=== PATIENT | male | born 1955 | race Caucasian/White ===

== ENCOUNTER 2021-03-21 16:48 | Inpatient (IN) | payer BC ==
[2021-03-21 18:18] LABS: HCT 42.9 % (39.0-53.0); HGB 14.6 gm/dL (13.0-17.5); MCH 30.2 pg (25.0-35.0); MCHC 34.1 g/dL (31.0-37.0); MCV 88.6 fL (80.0-100.0); Platelet Count 223 k/uL (150-450); RBC 4.84 m/uL (4.30-5.90); RDW 14.6 % (11.5-15.5); WBC 9.4 k/uL (3.8-10.6)
[2021-03-21 18:19] LABS: Basophils % (A) 1 %; Eosinophils # (A) 0.2 k/uL (0-0.7); Eosinophils % (A) 3 %; Lymphocytes # (A) 1.8 k/uL (1.0-4.8); Lymphocytes % (A) 19 %; Mean Platelet Volume 6.8; Monocytes # (A) 0.3 k/uL (0-1.0); Monocytes % (A) 4 %; Neutrophils # (A) 6.8 k/uL (1.3-7.7); Neutrophils % (A) 73 %
--- NOTE | 2021-03-21 18:28 | XR ---
EXAMINATION TYPE: XR chest 2V DATE OF EXAM: 03/21/2021 COMPARISON: Today HISTORY: Chest pain TECHNIQUE: FINDINGS: Heart and mediastinum are normal. Lungs are clear. Diaphragm is normal. Bony thorax is inta ct. There are chest leads. Pulmonary vascularity is normal. IMPRESSION: Normal chest. No adverse change.
[2021-03-21 18:33] LABS: ALT 17 U/L (4-49); AST 48 U/L (17-59); African American GFR (CKD) >90 (>60 ml/min/1.73 sqM); Albumin 3.3 g/dL (3.5-5.0); Alkaline Phosphatase 53 U/L (38-126); Anion Gap 5 mmol/L; Blood Urea Nitrogen 15 mg/dL (9-20); Calcium 7.7 mg/dL (8.4-10.2); Carbon Dioxide 22 mmol/L (22-30); Chloride 107 mmol/L (98-107); Glucose 107 mg/dL (74-99); Magnesium 1.9 mg/dL (1.6-2.3); Non-African American GFR(CKD) >90 (>60 ml/min/1.73 sqM); Partial Thromboplastin Time 37.8 sec (22.0-30.0); Potassium 4.7 mmol/L (3.5-5.1); Prothrombin Time 10.8 sec (9.0-12.0); Sodium 134 mmol/L (137-145); Total Bilirubin 0.2 mg/dL (0.2-1.3); Total Protein 5.9 g/dL (6.3-8.2)
[2021-03-21] MEDS ORDERED: SODIUM CHLORIDE 0.9% 1,000 ML IV ONE (18:38)
--- NOTE | 2021-03-21 18:49 | ED ---
Chest Pain HPI - General Chief Complaint: Chest Pain Stated Complaint: chest pain Time Seen by Provider: 03/21/21 16:55 Source: patient, EMS Mode of arrival: EMS Limitations: no limitations - History of Present Illness Initial Comments: Patient is a 65-year-old male with no reported past medical history who presents to the emergency department with chest pain. He is a transfer from [facility]. He states that around 7:30 this morning he began having some chest pain which began in the central portion of his chest and radiated out to his left arm. He thought that he was having some indigestion. Pain began while he was at work talking on the phone. He states he went into [facility] for further evaluation. He did have a 12-lead EKG which demonstrated some ST elevation in 1 of his inferior leads. Laboratory studies were conducted which demonstrated a negative troponin. Chest x-ray was performed. He was placed on a heparin drip. He was also given a nitro patch. 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 He did have a second troponin that was drawn at her facility however was transferred prior to the results. In route to our facility he became hypotensive. EMS did shock the patient's heparin drip and removed the patient's nitro patch. They did give him a 1500 mL bolus with some improvement in his blood pressure. The patient arrives to our facility and continues to state that he has 4 out of 10 pain. He denies fevers, chills or cough. No nausea, vomiting or diaphoresis. He denies previous history of cardiac disease. Reports that his only surgery was lymph node removal in his right arm with a diagnosis of cat scratch fever. Denies that he takes any medications daily. Patient does not smoke. No history of hypertension or high cholesterol. He denies a ripping or tearing sensation to his back. No shortness of breath. No other alleviating, precipitating or modifying factors - Related Data Previous Rx's Medication Instructions Recorded Ticagrelor [Brilinta] 90 mg PO BID 30 Days #60 tab 03/22/21 Aspirin 81 mg PO DAILY 03/23/21 Atorvastatin [Lipitor] 80 mg PO DAILY 30 Days #30 tab 03/23/21 Metoprolol Succinate (ER) [Toprol 12.5 mg PO DAILY 30 Days #30 tab 03/23/21 XL] Allergies Allergy/AdvReac Type Severity Reaction Status Date / Time No Known Allergies Allergy Verified 03/21/21 17:36 Review of Systems ROS Statement: Those systems with pertinent positive or pertinent negative responses have been documented in the HPI. ROS Other: All systems not noted in ROS Statement are negative. EKG Findings - EKG Comments: EKG Findings:: EKG done at our facility demonstrates a sinus bradycardia with a rate of 52. Urine of O2 12. QRS 78. QTC of 416. J-point elevation in 2, 3 and aVF. Inverted T-wave in aVL. No acute ST segment elevations. Repeat EKG at 191 demonstrates a sinus bradycardia with a ventricular rate of 50. ID interval 216. QRS 82. QTC of 392. No acute ST segment elevations or depressions Past Medical History Past Medical History: No Reported History History of Any Multi-Drug Resistant Organisms: None Reported Additional Past Surgical History / Comment(s): right axillary lymph node removal. Past Psychological History: No Psychological Hx Reported Smoking Status: Never smoker Past Alcohol Use History: Occasional Past Drug Use History: None Reported General Exam Limitations: no limitations General appearance: alert, in no apparent distress Head exam: Present: atraumatic, normocephalic, normal inspection Eye exam: Present: normal appearance, PERRL, EOMI. Absent: scleral icterus, conjunctival injection, periorbital swelling ENT exam: Present: normal exam, mucous membranes moist Neck exam: Present: normal inspection. Absent: tenderness, meningismus, lymphadenopathy Respiratory exam: Present: normal lung sounds bilaterally. Absent: respiratory distress, wheezes, rales, rhonchi, stridor Cardiovascular Exam: Present: normal rhythm, bradycardia, normal heart sounds. Absent: systolic murmur, diastolic murmur, rubs, gallop, clicks GI/Abdominal exam: Present: soft, normal bowel sounds. Absent: distended, tenderness, guarding, rebound, rigid Extremities exam: Present: normal inspection, full ROM, normal capillary refill. Absent: tenderness, pedal edema, joint swelling, calf tenderness Back exam: Present: normal inspection Neurological exam: Present: alert, oriented X3, CN II-XII intact Psychiatric exam: Present: normal affect, normal mood Skin exam: Present: warm, dry, intact, normal color. Absent: rash Course Vital Signs 03/21/21 03/21/2103/21/21 16:51 18:04 18:35 Temperature 98.0 F Pulse Rate 55 L 58 L 50 L Respiratory 12 16 16 Rate Blood Pressure 93/65 88/56 81/54 O2 Sat by Pulse 98 98 98 Oximetry 03/21/21 03/21/21 03/21/21 19:01 19:26 19:36 Temperature Pulse Rate 49 L 70 Respiratory 16 16 Rate Blood Pressure 100/62 95/68 107/81 O2 Sat by Pulse 98 97 Oximetry 03/21/21 19:51 Temperature Pulse Rate 50 L Respiratory 16 Rate Blood Pressure 111/67 O2 Sat by Pulse 98 Oximetry - Reevaluation(s) Reevaluation #1: 03/21/21 18:[address] Meyer - ruperto give fluid bolus, awaiting troponin and will call him back Reevaluation #2: Spoke with Dr. Meyer - will cath patient. Recommends peripheral levo, heparin, and cath activation 03/21/21 19:18 Chest Pain MDM - MDM Upon arrival the patient is placed into trauma 2. A thorough history and physical exam was performed. Patient does have some improvement in his blood pressure and has a systolic of 100 at this time. Repeat EKG was performed which demonstrates no acute ST segment elevation. I did repeat patient's laboratory studies. I did call over to [facility] and obtain the patient's second troponin level which was elevated at 0.43. I did call and speak with Dr. Cleaning in regards to the patient's low blood pressure readings. He instructs to give a 500 mL bolus and repeat a troponin level. He would like to be called back with the results. Patient is given a bolus and does have some transient improvement in his blood pressure however once again does fall. Repeat troponin comes back and is now at 1.6. I did call and speak with Dr. Meyer who states that the patient should be placed on peripheral levo and he will take him for cath. energy systems laboratory director was activated at this time. Risks and benefits were discussed with the patient and he does agree catheterization. Patient transported upstairs in stable condition. I did call and speak with Miah from [facility] who will admit the patient Critical Care Time Critical Care Time: Yes Critical Care Time: 35 minutes for multiple consultations with cardiology due to concern of acute cardiac ischemia, evaluation of multiple EKGs, continuation of heparin gtt and initiation of peripheral levo Disposition Clinical Impression: Chest pain, NSTEMI (non-ST elevated myocardial infarction) Disposition: ADMITTED IP TO THIS HOSP Condition: Serious Is patient prescribed a controlled substance at d/c from ED?: No Decision to Admit Reason: Admit from EC Decision Date: 03/21/21 Decision Time: 19:20
[2021-03-21] MEDS: SODIUM CHLORIDE 0.9% 1,000 ML IV SCH (18:59)
[2021-03-21] MEDS ORDERED: HEPARIN SODIUM 1,000 UN/ML (10ML VL) IV PRN (19:13)
[2021-03-21] MEDS ORDERED: HEPARIN SOD,PORK IN 0.45% NACL 25,000 UNIT in 0.45% NACL 1 250ML.BAG IV SCH (19:15)
[2021-03-21] MEDS ORDERED: NALOXONE 0.4 MG/ML 1 ML VIAL IV PRN (19:20)
[2021-03-21] MEDS: NOREPINEPHRINE 4 MG in SODIUM CHLORIDE 0.9% 250 ML IV SCH (19:29)
[2021-03-21] MEDS ORDERED: LIDOCAINE 1% INJ 10MG/ML (20 ML MDV) ONE (19:46)
[2021-03-21] MEDS ORDERED: VERAPAMIL 2.5 MG/ML 2 ML AMP ONE (20:15)
[2021-03-21] MEDS ORDERED: MIDAZOLAM 2 MG/2 ML VIAL IV ONE (20:19)
[2021-03-21] MEDS ORDERED: LIDOCAINE 1% INJ 10MG/ML (20 ML MDV) SQ ONE (20:28)
[2021-03-21] MEDS ORDERED: VERAPAMIL SYRINGE (5 MG/10 ML) INTRAARTER ONE (20:28)
[2021-03-21] MEDS ORDERED: HEPARIN SODIUM 1,000 UN/ML (10ML VL) ONE (20:34)
[2021-03-21] MEDS ORDERED: HEPARIN SODIUM 1,000 UN/ML (10ML VL) IV ONE (20:35)
[2021-03-21] MEDS ORDERED: TIROFIBAN BOLUS 12.5MG/250 ML BAG IV ONE (20:49)
[2021-03-21] MEDS ORDERED: TIROFIBAN 12.5MG-250ML NS 250 ML IV ONE (20:53)
[2021-03-21] MEDS ORDERED: IV FLUID CONTINUATION 950 ML IV ONE (20:53)
[2021-03-21] MEDS ORDERED: IOPAMIDOL-370 100ML BTL INJ ONE ×3 (21:38→21:50)
[2021-03-21] MEDS ORDERED: NITROGLYCERIN 1000MCG/10ML SYRINGE INTRACORON ONE (21:47)
[2021-03-21] MEDS ORDERED: TICAGRELOR 90 MG TAB PO ONE (21:49)
[2021-03-21] MEDS ORDERED: TICAGRELOR 90 MG TAB ONE (21:53)
[2021-03-21 22:27] LABS: Glucose,Whole Blood 109 mg/dL (75-99)
[2021-03-21] MEDS ORDERED: ATORVASTATIN 80 MG TAB PO STA (22:55)
[2021-03-21] MEDS ORDERED: TICAGRELOR 90 MG TAB PO STA (22:56)
--- NOTE | 2021-03-21 23:04 | CC ---
CARDIAC CATHETERIZATION REPORT DATE OF SERVICE: 03/21/2021. PROCEDURE: 1. Left heart catheterization and coronary angiography. 2. Percutaneous transluminal coronary angioplasty and stenting of PLV branch of RCA, PDA branch of RCA, mid and distal RCA with a total of 5 drug-eluting stents. PERFORMED BY: Dr. Bela Meyer. Moderate conscious sedation time was 97 minutes. Patient was administered Versed. Oxygen saturation, hemodynamics and EKG were monitored closely. CLINICAL INFORMATION: Mr. 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 He does not smoke. Had no major symptoms until this morning, when he was sitting in the truck trying to go to work, suddenly had chest pressure, nausea, diaphoresis, came into the [facility] Emergency Room, was transferred here. Troponin went up to 1.6 and I advised cardiac catheterization. He had a pain of about 3/10 without EKG changes of significance. He was on a heparin drip upon arrival. PROCEDURE NOTE: Under local anesthesia and strict aseptic precautions, a 6-Georgian introducer was placed in the right radial artery. Using a JL3.5 and JR4 catheters I performed coronary angiography, and the same right catheter was used to check LV pressure, but I did not perform the LV-gram. Following the PCI of multiple lesions in the RCA, the sheath was taken out and TR band applied as per protocol with saturation in the fingers of the right hand of 96%. The patient tolerated procedure well without complications. The details were discussed with the patient and his son. He was sent to the ICU in a stable condition. The patient was also placed on an Aggrastat drip. Transiently I used Levophed in the botany laboratory assistant. CARDIAC CATHETERIZATION FINDINGS: The left ventricular end-diastolic pressure was 18 mmHg without a gradient across aortic valve. RIGHT CORONARY ARTERY: Heavily calcified dominant vessel; in the proximal portion has a very eccentric 70% to 80% lesion best seen in the GUILLAUME cranial projection. In the mid portion there was another area of 70% to 80% narrowing and then bifurcates into PDA and PLV. PLV is totally occluded. PDA has 80% narrowing. The entire LAD has significant calcification. This is a dominant vessel. LEFT MAIN CORONARY ARTERY: Short patent vessel free of significant disease. Bifurcates into LAD and circumflex. LEFT ANTERIOR DESCENDING CORONARY ARTERY: Good-caliber vessel extends along the anterior wall, gives off a small diagonal and a large septal branch. Then there is another second diagonal branch, after which the entire vessel is diffusely diseased. The mid segment has 80% to 90% narrowing with calcification, after which caliber improves, and again in the distal third there is diffuse disease all the way to the apex. The diagonal branch that comes off also has diffuse disease of about 70% to 80%. The entire LAD and diagonal are diffusely diseased with multiple areas of 70% to 80%. LEFT POSTERIOR CIRCUMFLEX CORONARY ARTERY: This is a nondominant yet good-caliber and good-distribution vessel that has moderate calcification and has about an 80% lesion in the mid portion after a small obtuse marginal branch. Most of the circumflex vessel is the obtuse marginal branch, and there is a mid lesion of 80% eccentric. Calcified distal branches have mild diffuse disease. Left ventriculogram was not performed. FINAL IMPRESSION: This patient has significant triple-vessel disease with total occlusion of the PLV branch of a dominant RCA. There is significant disease in the mid RCA, distal RCA and PDA branch of RCA which have about 70% to 80% stenosis and 100% occlusion of the PLV branch, which is a culprit lesion. Left main is free of significant disease. LAD has a diffuse lesion. Diagonal has a diffuse lesion anywhere from 70% to 80%. LAD also has 70% to 80% multiple lesions. The circumflex in the mid portion has 80% lesion. All vessels are heavily calcified. LV end-diastolic pressures are elevated. No gradient across aortic valve. RECOMMENDATIONS: I proceeded to perform the culprit vessel intervention, which was the PLV branch of RCA. 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 The PLV kept distally. I used a 3.0 balloon to dilate the total occlusion. Multiple inflations were given. There was improvement in the vessel. I tried to advance a 3.0, 18 mm Xience stent, but I could not get past the mid lesion, which was heavily calcified. After some attempts, I used another bhavana wire and kept this Whisper wire in the PDA branch. I advanced an 8 mm long 3.0 Xience stent very carefully and deployed this in the distal RCA before bifurcation. Distal to the stent there was a small focal extravasation. It looked like a small contained dissection. I addressed this with another 2.75 caliber Xience stent, which I deployed at 13-14 atmospheres. The dissection was resolved. Flow improved. I then turned my attention to the PLV branch. Two 8 mm long 3.0 caliber Xience stents were deployed at the site of total occlusion with significant improvement. I then deployed another 8 mm long 3.0 caliber Xience stent in the PDA branch just at the origin of the PDA as it came off from the right coronary artery. Following this, the proximal/mid RCA eccentric 80% lesion was addressed with a 3.25 caliber 15 mm long Xience stent deployed at 14 atmospheres. Patient had chest pain but no significant EKG changes. Excellent angiographic result without complication was achieved. He received intravenous heparin 4000 units and also 180 mg of Brilinta and already had received aspirin. Multiple ACTs were obtained. Eventually ACT was kept between 200 and 250. The last one was 240. The sheath was taken out and TR band applied as per protocol. Transient use of Levophed occurred in the botany laboratory assistant. He was sent to the ICU in a stable condition with excellent angiographic result. Results were discussed with the patient and his son. I will seek a surgical evaluation to see if surgeons feel grafting the LAD, diagonal and circumflex is an option. I discussed this with the patient. We will seek a surgical consult tomorrow. Moderate conscious sedation time was 97 minutes. MMODL / IJN: [id number] /
[2021-03-22 04:06] LABS: Basophils # (A) 0.1 k/uL (0-0.2); Basophils % (A) 1 %; Eosinophils # (A) 0.1 k/uL (0-0.7); Eosinophils % (A) 1 %; HCT 41.9 % (39.0-53.0); HGB 13.9 gm/dL (13.0-17.5); Lymphocytes # (A) 1.8 k/uL (1.0-4.8); Lymphocytes % (A) 19 %; MCH 29.6 pg (25.0-35.0); MCHC 33.1 g/dL (31.0-37.0); MCV 89.3 fL (80.0-100.0); Mean Platelet Volume 6.9; Monocytes # (A) 0.4 k/uL (0-1.0); Monocytes % (A) 5 %; Neutrophils # (A) 6.8 k/uL (1.3-7.7); Neutrophils % (A) 73 %; Platelet Count 176 k/uL (150-450); RDW 14.1 % (11.5-15.5); WBC 9.3 k/uL (3.8-10.6)
[2021-03-22 04:34] LABS: African American GFR (CKD) >90 (>60 ml/min/1.73 sqM); Anion Gap 5 mmol/L; Blood Urea Nitrogen 12 mg/dL (9-20); Calcium 7.9 mg/dL (8.4-10.2); Carbon Dioxide 16 mmol/L (22-30); Chloride 112 mmol/L (98-107); Glucose 108 mg/dL (74-99); Non-African American GFR(CKD) >90 (>60 ml/min/1.73 sqM); Potassium 4.4 mmol/L (3.5-5.1); Sodium 133 mmol/L (137-145)
[2021-03-22] MEDS: NOREPINEPHRINE 4 MG in SODIUM CHLORIDE 0.9% 250 ML IV SCH (05:02)
[2021-03-22] MEDS ORDERED: ARGATROBAN 50 MG in SODIUM CHLORIDE 0.9% 50 ML IV SCH (06:00)
[2021-03-22] MEDS: SODIUM CHLORIDE 0.9% 1,000 ML IV SCH ×2 (09:42→22:16)
[2021-03-22] MEDS: ASPIRIN 81 MG PO SCH (09:42)
[2021-03-22] MEDS: ATORVASTATIN 80 MG TAB PO SCH (09:42)
[2021-03-22] MEDS: TICAGRELOR 90 MG TAB PO SCH ×2 (11:22→22:00)
--- NOTE | 2021-03-22 12:44 | P.PN ---
Subjective This is a 65-year-old female with history of cat scratch fever and lymph node biopsy in his right axillary lymph node years ago. No known history of TN, stroke, hypertension, hyperlipidemia, coronary artery disease. He is a non- smoker. He does not follow with a lace finisher. Patient presented emergency department on 03/21/2021 with complaints of sudden chest pressure, nausea, diaphoresis. He presented to [facility] emergency room and was transferred to [facility]. His pain was 3/10 without EKG changes of significance. Chest xray with no acute findings. Troponin 1.6--> 23.2. Patient underwent cardiac catheterization with Dr. Meyer. Cardiac catheter revealed significant triple vessel disease with total occlusion of the PLV branch of RCA. Significant disease in the mid RCA, distal RCA and PDA branch of RCA. LAD has a diffuse lesion. Diagonal has diffuse lesion anywhere from 70-80%. LAD also has 70-80% multiple lesions. Circumflex in the midportion is 80% lesion. Patient underwent stenting of the PLV branch of RCA, PDA branch of RCA mid and distal RCA with a total of 5 stents. 03/22/2021: Patient seen and examined in the intensive care unit. He is alert and oriented 3. No acute distress. Patient was hypotensive after the procedure required norepinephrine at 0.05mcg/kg/m. He denies any complaints of chest pain, shortness of breath, lightheadedness, dizziness. He's currently maintained on 0.9NaCL 100mL/hr, aspirin 81 mg daily, Brilinta 90mg BID, atorvastatin 80 mg daily, norepinephrine at 0.05mcg/kg/m. laboratory data reviewed CBC unremarkable, sodium 133, potassium 4.4, BUN 12, serum creatinine 0.6. He is maintaining sinus mechanism. Echo pending. GENERAL: Well-appearing, well-nourished and in no acute distress. NECK: Supple without JVD or thyromegaly. LUNGS: Breath sounds clear to auscultation bilaterally. Respiration equal and unlabored. No wheezes, rales or rhonchi. HEART: Regular rate and rhythm without murmurs, rubs or gallops. S1 and S2 heard. EXTREMITIES: Normal range of motion, no edema. No clubbing or cyanosis. Peripheral pulses intact. SKIN: Right radial cath site, dry blood noted, good 2+ pulses. ASSESSMENT: Severe triple vessel coronary artery disease s/p PCI RCA on 03/21 PLAN: -2D echocardiogram ordered, will follow up on results -Recommend treating hypotension with IV fluids and weaning patient off norepinephrine -Holding treatment with beta felix due to hypotension -Continue dual antiplatelet with aspirin and brilinta -Case management consulted for cost, per case management it is $30 and patient qualifies for $5 copay. -Continue statin -Further recommendations based on clinical course Objective - Vital Signs Vital signs: Vital Signs Temp 97.8 F 03/22/21 00:15 Pulse 63 03/22/21 07:00 Resp 16 03/22/21 07:00 BP 102/57 03/22/21 07:00 Pulse Ox 95 03/22/21 07:00 Intake & Output 03/21/21 03/22/21 03/22/21 18:59 06:59 18:59 Intake Total 1340.913 100 Output Total 1480 400 Balance -139.087 -300 Weight 70.307 kg 77 kg Intake: IV 413 Intake, IV Titration 927.913 100 Amount Norepinephrine 4 mg In 127.913 Sodium Chloride 0.9% 250 ml @ 0.05 MCG/KG/MIN 13. 394 mls/hr IV .[id number] ROSI Rx#:[id number] Sodium Chloride 0.9% 1, 800 100 000 ml @ 100 mls/hr IV . Q10H ROSI Rx#:[id number] Output: Urine 1480 400 - Labs CBC & Chem 7: 03/22/21 03:46 03/22/21 03:46 Labs: Abnormal Lab Results - Last 24 Hours (Table) 03/21/21 03/21/21 03/21/21 Range/Units 18:02 18:02 18:02 APTT 37.8 H (22.0-30.0) sec Sodium 134 L (137-145) mmol/L Chloride (98-107) mmol/L Carbon Dioxide (22-30) mmol/L Creatinine (0.66-1.25) mg/dL Glucose 107 H (74-99) mg/dL POC Glucose (mg/dL) (75-99) mg/dL Calcium 7.7 L (8.4-10.2) mg/dL Troponin I 1.600 H* (0.000-0.034) ng/mL Total Protein 5.9 L (6.3-8.2) g/dL Albumin 3.3 L (3.5-5.0) g/dL 03/21/21 03/22/21 03/22/21 Range/Units 22:25 03:46 03:46 APTT (22.0-30.0) sec Sodium 133 L (137-145) mmol/L Chloride 112 H (98-107) mmol/L Carbon Dioxide 16 L (22-30) mmol/L Creatinine 0.64 L (0.66-1.25) mg/dL Glucose 108 H (74-99) mg/dL POC Glucose (mg/dL) 109 H (75-99) mg/dL Calcium 7.9 L (8.4-10.2) mg/dL Troponin I 23.200 H* (0.000-0.034) ng/mL Total Protein (6.3-8.2) g/dL Albumin (3.5-5.0) g/dL
--- NOTE | 2021-03-22 15:48 | CONS ---
CONSULTATION I saw the patient yesterday upon his arrival in the emergency room with chest pain and transfer from [facility]. 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 He has not seen a physician for more than 10 years. He has remotely a procedure for a lymph node biopsy for cat scratch fever more than 10 years ago. He does not take any prescription medicines. He had an episode of chest pain with pressure, heaviness, nausea and diaphoresis before he went to work, and then he was taken to [facility], where his troponin was equivocally elevated. EKG was unremarkable. He was transferred [facility] to [facility]. 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 He had 3 to 4 over 10 chest discomfort. No EKG changes. Troponin went up to 1.6. Clinical picture was that of acute ischemic syndrome with a [id number] NV. He was reasonably comfortable, hemodynamically stable. I advised the patient I will proceed with cardiac cath, possible intervention. He understood all details and wished to proceed with the procedure. I also spoke to his son, who was available. PAST MEDICAL HISTORY: No hypertension, diabetes, myocardial infarction or CVA. History of cat scratch fever and lymph node biopsy. MEDICATIONS: None. ALLERGIES: NO KNOWN DRUG ALLERGIES. PHYSICAL EXAMINATION: On examination, blood pressure is 128/70. Patient was on a small dose of Levophed. Pulse rate is 90 per minute, sinus. HEENT: Unremarkable. Fundus was not examined by me. Neck is supple. No JVD. No carotid bruit. Heart exam reveals S1, S2 heard normally. No significant murmurs. Lungs are clear. Abdomen is soft, nontender. Lower extremities reveal normal pulses. No edema. Central nervous system is normal. EKG revealed a sinus mechanism, no acute changes. IMPRESSION: 1. Chest pain with troponin elevation suggestive of [id number] myocardial infarction. 2. No other major risk factors. Patient is not a smoker. RECOMMENDATIONS: I am recommending coronary angiography, possible PCI, and proceeded to perform the procedure expeditiously. MMODL / JORGEN: [id number] /
--- NOTE | 2021-03-22 16:01 | ECHOF ---
Referral Reason:evalate LV function and wall motion MEASUREMENTS -------- HEIGHT: 170.2 cm WEIGHT: 70.3 kg BP: 102/57 IVSd: 1.2 cm (0.6 - 1.1) LVIDd: 3.5 cm (3.9 - 5.3) LVPWd: 1.1 cm (0.6 - 1.1) EDV(Teich): 51 ml IVSs: 1.8 cm LVIDs: 2.3 cm LVPWs: 1.6 cm %IVS Thck: 50 % ESV(Teich): 19 ml EF(Teich): 63 % %FS: 33 % SV(Teich): 32 ml IVC: 20.36 mm LALs A4C: 4.4 cm LAAs A4C: 13.4 cm LAESV A-L A4C: 35 ml LAESV MOD A4C: 31 ml LALs A2C: 3.6 cm LAAs A2C: 9.6 cm LAESV A-L A2C: 21 ml LAESV MOD A2C: 20 ml LAESV(A-L): 30 ml LAESV Index (A-L): 16.50 ml/m Ao Diam: 3.2 cm (2.0 - 3.7) LA Diam: 2.2 cm (2.7 - 3.8) AV Cusp: 1.6 cm (1.5 - 2.6) EPSS: 0.4 cm MV E Rudolph: 0.91 m/s MV DecT: 253 ms MV Dec Sac: 3.6 m/s MV A Rudolph: 0.67 m/s MV E/A Ratio: 1.35 MV PHT: 73 ms AV Vmax: 1.28 m/s AV maxP.51 mmHg TR Vmax: 1.42 m/s TR maxP.09 mmHg RAP: 5.00 mmHg RVSP: 13.09 mmHg MV EF SLOPE: 134.50 mm/s (70 - 150) MV EXCURSION: 20.82 mm (> 18.000) FINDINGS -------- This was a technically difficult study with suboptimal views. The left ventricular size is normal. There is borderline concentric left ventricular hypertrophy. Overall left ventricular systolic function is low-normal with, an EF between 50 - 55 %. Basal infe rior LV wall motion is hypokinetic. Basal inferoseptal LV wall motion is hypokinetic. The right ventricle is normal in size. The left atrial size is normal. Normal LA size by volume 22+/-6 ml/m2. The right atrial size is normal. Lumason used The aortic valve is trileaflet and appears structurally normal. The mitral valve is normal. There is trace mitral regurgitation. The tricuspid valve appears structurally normal. Trace tricuspid regurgitation present. Right rebecca tricular systolic pressure is normal at < 35 mmHg. There is no pulmonic regurgitation present. The aortic root size is normal. Normal inferior vena cava with normal inspiratory collapse consistent with estimated right atrial pre ssure of 5 mmHg. There is no pericardial effusion. CONCLUSIONS -------- 1. The left ventricular size is normal. 2. There is borderline concentric left ventricular hypertrophy. 3. Overall left ventricular systolic function is low-normal with, an EF between 50 - 55 %. 4. Basal inferior LV wall motion is hypokinetic. 5. Basal inferoseptal LV wall motion is hypokinetic. 6. There is trace mitral regurgitation. 7. Trace tricuspid regurgitation present. 8. There is no pericardial effusion. SUBSEA ENGINEER: Shobha Jnoes, LUDWIN
--- NOTE | 2021-03-22 21:20 | P.HPIM ---
History of Present Illness H&P Date: 03/22/21 Chief Complaint: Chest pain Patient is a 65-year-old male without significant past medical history initially presented to [facility] ER with the complaints of chest pain. Patient states that he was having chest discomfort, tightness and indigestion-like feeling started around 730 yesterday morning and felt tingling sensation in the left arm. Patient was also having excessive sweating. Patient initially presented to [facility] at around 11 AM. She did have an EKG which showed ST elevation in in one of the inferior leads. Chest x-ray was done and initial troponin was negative. Patient was given Nitropaste which seemed to relieve his pain but his blood pressure came down with that. Patient was started on heparin drip and was transferred to [facility] for cardiology evaluation.] EMS did shock the patient due to hypotension and removed Nitropaste. Patient was given 1.5 L fluid bolus with improvement in blood pressure. Chest pain was 4 out of 10 upon presenting to the ER and has been like that until he went to the [facility] [employer]. Denies any complaints of fever or chills. No cough or sputum production. Denied any shortness of breath associate with pain. Denies any recent illnesses. No nausea vomiting or abdominal pain or diarrhea. Denied any exertional dyspnea. Chest x-ray showed normal chest. No adverse change. EKG showed sinus bradycardia with first-degree AV block. Laboratory data showed sodium 134 potassium 4.7 chloride 107, bicarb 22 BUN 15 and creatinine 0.77 Calcium 7.7 Troponin 1.6 Albumin 3.3 Patient was taken to cardiac catheterization status post stent x5 to RCA. Review of Systems Constitutional: Patient denies any fever or chills . No generalized weakness or weight loss. Abdomen: Patient denied nausea vomiting and diarrhea and abdominal pain. Cardiovascular: Patient denies any chest pain or short of breath no palpitations. Respiratory: patient denied any cough or sputum production. No shortness of breath Neurologic: Patient denied any numbness or tingling headache. Musculoskeletal: Patient denies any complaints of joint swelling or deformity. Skin: Negative Psychiatric: Negative Endocrine: No heat or cold intolerance. No recent weight gain. Genitourinary: No dysuria or hematuria. All other 14 point ROS negative except the above Past Medical History Past Medical History: No Reported History History of Any Multi-Drug Resistant Organisms: None Reported Additional Past Surgical History / Comment(s): right axillary lymph node removal. Past Psychological History: No Psychological Hx Reported Smoking Status: Never smoker Past Alcohol Use History: Occasional Past Drug Use History: None Reported Medications and Allergies Home Medications Medication Instructions Recorded Confirmed Type Ticagrelor [Brilinta] 90 mg PO BID 30 Days #60 tab 03/22/21 Rx Allergies Allergy/AdvReac Type Severity Reaction Status Date / Time No Known Allergies Allergy Verified 03/21/21 17:36 Physical Exam Vitals: Vital Signs Temp Pulse Resp BP Pulse Ox 03/22/21 07:00 63 16 102/57 95 03/22/21 06:00 48 L 18 95/63 96 03/22/21 05:00 56 L 13 95/63 94 L 03/22/21 04:00 67 16 82/53 94 L 03/22/21 03:00 60 16 82/53 93 L 03/22/21 02:00 60 19 82/55 92 L 03/22/21 01:00 59 L 10 L 83/52 93 L 03/22/21 00:15 97.8 F 59 L 16 77/53 92 L 03/22/21 00:00 65 13 85/55 92 L 03/21/21 23:00 97.7 F 71 16 103/71 92 L 03/21/21 19:51 50 L 16 111/67 98 03/21/21 19:36 107/81 03/21/21 19:26 70 16 95/68 97 03/21/21 19:01 49 L 16 100/62 98 03/21/21 18:35 50 L 16 81/54 98 03/21/21 18:04 58 L 16 88/56 98 03/21/21 16:51 98.0 F 55 L 12 93/65 98 Intake and Output 03/21/21 03/22/21 03/22/21 22:59 06:59 14:59 Intake Total 413 927.913 537.95 Output Total 300 1180 1200 Balance 113 -252.087 -662.05 Intake: IV 413 200 Sodium Chloride 0.9% 1, 200 000 ml @ 100 mls/hr IV . Q10H [facility] Rx#:[id number] Intake, IV Titration 927.913 137.95 Amount Norepinephrine 4 mg In 127.913 37.95 Sodium Chloride 0.9% 250 ml @ 0.05 MCG/KG/MIN 13. 394 mls/hr IV .[id number] [facility] Rx#:[id number] Sodium Chloride 0.9% 1, 800 100 000 ml @ 100 mls/hr IV . Q10H [facility] Rx#:[id number] Oral 200 Output: Urine 300 1180 1200 Other: Weight 70.307 kg 77 kg PHYSICAL EXAMINATION: Patient is lying in the bed comfortably, no acute distress, awake alert and oriented.. HEENT: Normocephalic. Neck is supple. Pupils reactive. Nostrils clear. Oral cavity is moist. Neck reveals no JVD, carotid bruits, or thyromegaly. CHEST EXAMINATION: Trachea is central. Symmetrical expansion. Lung polanco clear to auscultation and percussion. CARDIAC: Normal S1, S2 with no gallops. No murmurs ABDOMEN: Soft. Bowel sounds normal. No organomegaly. No abdominal bruits. Extremities: reveal no edema. No clubbing or cyanosis Neurologically awake, alert, oriented x3 with well-coordinated movements. No focal deficits noted Skin: No rash or skin lesions. Psychiatric: Coperative. Nonsuicidal Musculoskeletal: No joint swelling or deformity. Normal range of motion. Results CBC & Chem 7: 03/22/21 03:46 03/22/21 03:46 Labs: Abnormal Lab Results - Last 24 Hours (Table) 03/21/21 03/21/21 03/21/21 Range/Units 18:02 18:02 18:02 APTT 37.8 H (22.0-30.0) sec Sodium 134 L (137-145) mmol/L Chloride (98-107) mmol/L Carbon Dioxide (22-30) mmol/L Creatinine (0.66-1.25) mg/dL Glucose 107 H (74-99) mg/dL POC Glucose (mg/dL) (75-99) mg/dL Calcium 7.7 L (8.4-10.2) mg/dL Troponin I 1.600 H* (0.000-0.034) ng/mL Total Protein 5.9 L (6.3-8.2) g/dL Albumin 3.3 L (3.5-5.0) g/dL 03/21/21 03/22/21 03/22/21 Range/Units 22:25 03:46 03:46 APTT (22.0-30.0) sec Sodium 133 L (137-145) mmol/L Chloride 112 H (98-107) mmol/L Carbon Dioxide 16 L (22-30) mmol/L Creatinine 0.64 L (0.66-1.25) mg/dL Glucose 108 H (74-99) mg/dL POC Glucose (mg/dL) 109 H (75-99) mg/dL Calcium 7.9 L (8.4-10.2) mg/dL Troponin I 23.200 H* (0.000-0.034) ng/mL Total Protein (6.3-8.2) g/dL Albumin (3.5-5.0) g/dL Thrombosis Risk Factor Assmnt - DVT/VTE Prophylaxis DVT/VTE Prophylaxis: Pharmacologic Prophylaxis ordered - Choose All That Apply Any of the Below Risk Factors Present?: Yes Each Factor Represents 1 point: Acute NH Each Risk Factor Represents 2 Points: Age 61-74 years Other congenital or acquired thrombophilia - If yes, enter type in comment: No Thrombosis Risk Factor Assessment Total Risk Factor Score: 3 Thrombosis Risk Factor Assessment Level: Moderate Risk Assessment and Plan Assessment: Acute non-ST elevated NH. Status post stent placement x5 on 03/21/2021 Elevated troponin level secondary to above Hypotension on the way to ER status post shock and fluid bolus with 1.5 L normal saline with improvement in blood pressure. DVT prophylaxis with heparin subcu. Plan: Patient was continued on heparin drip. Currently status post cardiac catheterization and stent placement. Continue with dual antiplatelet agents aspirin and ticagrelor. Follow-up LDL level and continue the statins at this time. Cardiology is on board. Continue to follow closely. Patient is is being monitored in the MICU. Time with Patient: Greater than 30
[2021-03-22] MEDS: HEPARIN SODIUM,PORCINE/PF 5,000 UNIT/0.5 ML SYRINGE SQ SCH (23:20)
[2021-03-23 03:55] LABS: Basophils % (A) 1 %; Eosinophils # (A) 0.3 k/uL (0-0.7); Eosinophils % (A) 4 %; HCT 44.6 % (39.0-53.0); HGB 15.2 gm/dL (13.0-17.5); Lymphocytes % (A) 24 %; MCH 29.9 pg (25.0-35.0); MCHC 34.1 g/dL (31.0-37.0); MCV 87.7 fL (80.0-100.0); Monocytes # (A) 0.6 k/uL (0-1.0); Monocytes % (A) 7 %; Neutrophils # (A) 5.3 k/uL (1.3-7.7); Neutrophils % (A) 64 %; Platelet Count 155 k/uL (150-450); RBC 5.09 m/uL (4.30-5.90); RDW 14.3 % (11.5-15.5); WBC 8.4 k/uL (3.8-10.6)
[2021-03-23 04:13] LABS: African American GFR (CKD) >90 (>60 ml/min/1.73 sqM); Anion Gap 7 mmol/L; Blood Urea Nitrogen 11 mg/dL (9-20); Calcium 8.7 mg/dL (8.4-10.2); Carbon Dioxide 21 mmol/L (22-30); Chloride 107 mmol/L (98-107); Glucose 99 mg/dL (74-99); Non-African American GFR(CKD) >90 (>60 ml/min/1.73 sqM); Sodium 135 mmol/L (137-145)
[2021-03-23] MEDS: ATORVASTATIN 80 MG TAB PO SCH (08:57)
[2021-03-23] MEDS: HEPARIN SODIUM,PORCINE/PF 5,000 UNIT/0.5 ML SYRINGE SQ SCH (08:57)
[2021-03-23] MEDS: TICAGRELOR 90 MG TAB PO SCH (08:57)
[2021-03-23] MEDS: ASPIRIN 81 MG PO SCH (08:57)
[2021-03-23] MEDS ORDERED: METOPROLOL SUCCINATE (ER) 25 MG TAB.ER.24H PO SCH (09:00)
--- NOTE | 2021-03-23 10:07 | P.PN ---
Subjective This is a 65-year-old female with history of cat scratch fever and lymph node biopsy in his right axillary lymph node years ago. No known history of CT, stroke, hypertension, hyperlipidemia, coronary artery disease. He is a non- smoker. 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 Patient presented emergency department on 03/21/2021 with complaints of sudden chest pressure, nausea, diaphoresis. He presented to [facility] emergency room and was transferred to [facility]. His pain was 3/10 without EKG changes of significance. Chest xray with no acute findings. Troponin 1.6--> 23.2-->21.3. Patient underwent cardiac catheterization with Dr. Meyer. Cardiac catheter revealed significant triple vessel disease with total occlusion of the PLV branch of RCA. Significant disease in the mid RCA, distal RCA and PDA branch of RCA. LAD has a diffuse lesion. Diagonal has diffuse lesion anywhere from 70- 80%. LAD also has 70-80% multiple lesions. Circumflex in the midportion is 80% lesion. Patient underwent stenting of the PLV branch of RCA, PDA branch of RCA mid and distal RCA with a total of 5 stents. 03/22/2021: Patient seen and examined in the intensive care unit. He is alert and oriented 3. No acute distress. Patient was hypotensive after the procedure required norepinephrine at 0.05mcg/kg/m. He denies any complaints of chest pain, shortness of breath, lightheadedness, dizziness. He's currently maintained on 0.9NaCL 100mL/hr, aspirin 81 mg daily, Brilinta 90mg BID, atorvastatin 80 mg daily, norepinephrine at 0.05mcg/kg/m. laboratory data reviewed CBC unremarkable, sodium 133, potassium 4.4, BUN 12, serum creatinine 0.6. He is maintaining sinus mechanism. Echo pending. 03/23/2021: Patient seen and examined in the intensive care unit he is alert and oriented 3. No acute distress. He denies chest pain, stress of breath, lightheadedness, dizziness. He is currently maintained on aspirin 81 mg daily, Brilinta 90mg BID, atorvastatin 80 mg daily. Blood pressure 111/69, heart rate 70, afebrile, maintaining oxygen saturations 95% on room air. He is maintaining sinus mechanism. His echocardiogram revealed EF 50-55%, basal inferior LV wall, basal inferoseptal LV wall hypokinetic, trace mitral regurgitation, trace tricuspid regurgitation. Laboratory data review WBC 8.4, hemoglobin 15.2, platelets 155, sodium 135, potassium 4.0, BUN 11, serum creatinine 0.7. GENERAL: Well-appearing, well-nourished and in no acute distress. NECK: Supple without JVD or thyromegaly. LUNGS: Breath sounds clear to auscultation bilaterally. Respiration equal and unlabored. No wheezes, rales or rhonchi. HEART: Regular rate and rhythm without murmurs, rubs or gallops. S1 and S2 heard. EXTREMITIES: Normal range of motion, no edema. No clubbing or cyanosis. Peripheral pulses intact. SKIN: Right radial cath site, dry blood noted, good 2+ pulses. ASSESSMENT: NSTEMI, s/p PCI RCA on 03/21 Chest pain PLAN: -Start metoprolol succinate 12.5mg daily -Contine dual antiplatelet with aspirin and brilinta -Case management consulted for cost, per case management it is $30 and patient qualifies for $5 copay. -Continue statin -All medications sent to pharmacy -From a cardiology perspective, patient is stable to be discharged home today. -Patient to follow up with Dr. Meyer in 1 week Objective - Vital Signs Vital signs: Vital Signs Temp 98.6 F 03/23/21 04:00 Pulse 70 03/23/21 00:00 Resp 16 03/23/21 04:00 BP 111/69 03/23/21 04:00 Pulse Ox 95 03/23/21 04:00 Intake & Output 03/22/21 03/23/21 03/23/21 18:59 06:59 18:59 Intake Total 1287.95 Output Total 2024 1200 Balance -737.05 -1200 Weight 74.4 kg Intake: IV 300 Sodium Chloride 0.9% 1, 300 000 ml @ 100 mls/hr IV . Q10H [facility] Rx#:[id number] Intake, IV Titration 137.95 Amount Norepinephrine 4 mg In 37.95 Sodium Chloride 0.9% 250 ml @ 0.05 MCG/KG/MIN 13. 394 mls/hr IV .[id number] [facility] Rx#:[id number] Sodium Chloride 0.9% 1, 100 000 ml @ 100 mls/hr IV . Q10H [facility] Rx#:[id number] Oral 850 Output: Urine 2024 1199 Other: Voiding Method Toilet Toilet Urinal Urinal - Labs CBC & Chem 7: 03/23/21 03:20 03/23/21 03:20 Labs: Abnormal Lab Results - Last 24 Hours (Table) 03/22/21 03/23/21 Range/Units 12:08 03:20 Sodium 135 L (137-145) mmol/L Carbon Dioxide 21 L (22-30) mmol/L Troponin I 21.300 H* (0.000-0.034) ng/mL
[2021-03-23 10:33] LABS: Chol/HDL Ratio 9.14; Cholesterol 256 mg/dL (0-200); LDL Cholesterol,Calculated 189.2 mg/dL (0.0-131.0)
[2021-03-23 10:50] VITALS: BP 120/77; PULSE 80; RESP 13; TEMP 97.6
--- NOTE | 2021-04-12 15:37 | P.DS ---
Providers Date of admission: 03/21/21 19:21 Expected date of discharge: 03/23/21 Attending physician: Yvan Davenport Consults: 03/21/21 19:20 Consult Physician Urgent Consulting Provider: [facility] Reason/Comments: acute chest pain, nstemi Do you want consulting provider notified?: Already Contacted Primary care physician: [facility] Course: Discharge diagnosis Acute non-ST elevated [place]. Status post stent placement x5 on 03/21/2021 Elevated troponin level secondary to above Hypotension on the way to ER status post shock and fluid bolus with 1.5 L normal saline with improvement in blood pressure. DVT prophylaxis with heparin subcu. Hospital course Patient is a 65-year-old male without significant past medical history initially presented to [facility] ER with the complaints of chest pain. Patient states that he was having chest discomfort, tightness and indigestion-like feeling started around 730 yesterday morning and felt tingling sensation in the left arm. Patient was also having excessive sweating. Patient initially presented to [facility] at around 11 AM. She did have an EKG which showed ST elevation in in one of the inferior leads. Chest x-ray was done and initial troponin was negative. Patient was given Nitropaste which seemed to relieve his pain but his blood pressure came down with that. Patient was started on heparin drip and was transferred to [facility] for cardiology evaluation.] EMS did shock the patient due to hypotension and removed Nitropaste. Patient was given 1.5 L fluid bolus with improvement in blood pressure. Chest pain was 4 out of 10 upon presenting to the ER and has been like that until he went to the [employer]. Denies any complaints of fever or chills. No cough or sputum production. Denied any shortness of breath associate with pain. Denies any recent illnesses. No nausea vomiting or abdominal pain or diarrhea. Denied any exertional dyspnea. Chest x-ray showed normal chest. No adverse change. EKG showed sinus bradycardia with first-degree AV block. Laboratory data showed sodium 134 potassium 4.7 chloride 107, bicarb 22 BUN 15 and creatinine 0.77 Calcium 7.7 Troponin 1.6 Albumin 3.3 Patient was taken to cardiac catheterization status post stent x5 to RCA. 03/23/2021 Patient is currently in MICU. Denied any complaints of chest pain or shortness of. No other acute overnight issues. No telemetry findings of arrhythmia. Status post cardiac catheterization and stent placement. Hemodynamically stable. Currently maintaining sinus rhythm. 2D echocardiogram showed ejection fraction 50 to 55%, basal inferior LV wall basilar inferoseptal LV wall hypokinetic. Trace MR, trace TR. Laboratory showed WBC 8.4 hemoglobin 15.2 and platelets 135 Sodium 135 potassium 4.0 BUN 11 and creatinine 0.7 Patient is being continued on aspirin, Brilinta, statins and metoprolol was started at 12.5 mg daily. Patient is being discharged home today. Cleared from cardiology standpoint. PHYSICAL EXAMINATION: Patient is lying in the bed comfortably, no acute distress, awake alert and oriented.. HEENT: Normocephalic. Neck is supple. Pupils reactive. Nostrils clear. Oral cavity is moist. Neck reveals no JVD, carotid bruits, or thyromegaly. CHEST EXAMINATION: Trachea is central. Symmetrical expansion. Lung polanco clear to auscultation and percussion. CARDIAC: Normal S1, S2 with no gallops. No murmurs ABDOMEN: Soft. Bowel sounds normal. No organomegaly. No abdominal bruits. Extremities: reveal no edema. No clubbing or cyanosis Neurologically awake, alert, oriented x3 with well-coordinated movements. No focal deficits noted Skin: No rash or skin lesions. Psychiatric: Coperative. Nonsuicidal Musculoskeletal: No joint swelling or deformity. Normal range of motion. Vital signs: Vital Signs Temp 98.6 F 03/23/21 04:00 Pulse 70 03/23/21 00:00 Resp 16 03/23/21 04:00 BP 111/69 03/23/21 04:00 Pulse Ox 95 03/23/21 04:00 Intake & Output 03/22/21 03/23/21 03/23/21 18:59 06:59 18:59 Intake Total 1287.95 Output Total 2024 1200 Balance -737.05 -1200 Weight 74.4 kg Intake: IV 300 Sodium Chloride 0.9% 1, 300 000 ml @ 100 mls/hr IV . Q10H [facility] Rx#:[id number] Intake, IV Titration 137.95 Amount Norepinephrine 4 mg In 37.95 Sodium Chloride 0.9% 250 ml @ 0.05 MCG/KG/MIN 13. 394 mls/hr IV .[id number] [facility] Rx#:[id number] Sodium Chloride 0.9% 1, 100 000 ml @ 100 mls/hr IV . Q10H [facility] Rx#:[id number] Oral 850 Output: Urine 2024 1199 Other: Voiding Method Toilet Toilet Urinal Urinal Patient Condition at Discharge: Serious Plan - Discharge Summary Discharge Rx Participant: No New Discharge Prescriptions: New Ticagrelor [Brilinta] 90 mg PO BID 30 Days #60 tab Atorvastatin [Lipitor] 80 mg PO DAILY 30 Days #30 tab Aspirin 81 mg PO DAILY No Action Metoprolol Succinate (ER) [Toprol XL] 25 mg PO DAILY Discharge Medication List Ticagrelor [Brilinta] 90 mg PO BID 30 Days #60 tab 03/22/21 [Rx] Aspirin 81 mg PO DAILY 03/23/21 [Rx] Atorvastatin [Lipitor] 80 mg PO DAILY 30 Days #30 tab 03/23/21 [Rx] Metoprolol Succinate (ER) [Toprol XL] 25 mg PO DAILY 04/12/21 [History] Follow up Appointment(s)/Referral(s): Rene Meyer MD [STAFF PHYSICIAN] - 1 Week ([facility] stated he is a new patient, took information and stated they would call him with appt date and time. Patient told to call there by the end of the week if they have not received a phone call. ) Marshal Carl MD [Primary Care Provider] - 1-2 days Discharge Disposition: HOME SELF-CARE
== END 2021-03-23 13:11 | disposition home or self-care (01) | DRG 246 ==
LOC: EC 16:48 → 2SICU 19:21
PROVIDERS: ADMIT Hospitalist; ATTEND Hospitalist
PROC: 027337Z Dilation of Coronary Artery, Four or More Arteries with Four or More Drug-eluting Intraluminal Devices, Percutaneous Approach (ICD-10-PCS; principal; 2021-03-21 19:44)
PROC: 4A023N7 Measurement of Cardiac Sampling and Pressure, Left Heart, Percutaneous Approach (ICD-10-PCS; 2021-03-21 19:44)
PROC: B2111ZZ Fluoroscopy of Multiple Coronary Arteries using Low Osmolar Contrast (ICD-10-PCS; 2021-03-21 19:44)
DX: I21.4 Non-ST elevation (NSTEMI) myocardial infarction (principal); I25.10 Atherosclerotic heart disease of native coronary artery without angina pectoris; I25.2 Old myocardial infarction; I25.82 Chronic total occlusion of coronary artery; I44.0 Atrioventricular block, first degree; Z79.02 Long term (current) use of antithrombotics/antiplatelets; Z79.82 Long term (current) use of aspirin; Z79.899 Other long term (current) drug therapy; I95.9 Hypotension, unspecified
CPT/HCPCS: 36415; 71046; 80048; 80053; 80061; 83735; 84484; 85025; 85610; 85730; 93005; 93306; 93458; 99285

== ENCOUNTER 2021-04-14 06:37 | Day surgery (SDC) | payer BC ==
[2021-04-12 09:17] VITALS: BMI 25.7
[~2021-04-14 06:37] MED LIST: ALPRAZolam 0.25 MG TAB PO PRN; ALPRAZolam 0.5 MG TAB PO PRN; ASPIRIN 325 MG TAB PO STA; HEPARIN SODIUM,PORCINE 10,000 UNIT in SODIUM CHLORIDE 0.9% 1,000 ML IRRIGATION PRN; HEPARIN SODIUM,PORCINE 2,500 UNIT in SODIUM CHLORIDE 0.9% 250 ML IRRIGATION PRN; NITROGLYCERIN SL TABS 0.4 MG TAB SUBLINGUAL PRN; SODIUM CHLORIDE 0.9% 1,000 ML in EMPTY BAG 1 BAG IV ONE
[2021-04-14 07:01] VITALS: RESP 18; TEMP 98.3
[2021-04-14] MEDS ORDERED: VERAPAMIL 2.5 MG/ML 2 ML AMP ONE (07:05)
[2021-04-14] MEDS ORDERED: LIDOCAINE 1% INJ 10MG/ML (20 ML MDV) ONE (07:05)
[2021-04-14] MEDS ORDERED: fentaNYL (PF) 50 MCG/ML 2 ML AMP ONE (07:07)
[2021-04-14] MEDS ORDERED: HEPARIN SODIUM 1,000 UN/ML (10ML VL) ONE (07:17)
[2021-04-14] MEDS: MIDAZOLAM 2 MG/2 ML VIAL IV ONE ×2 (07:40→07:55)
[2021-04-14] MEDS ORDERED: MIDAZOLAM 2 MG/2 ML VIAL IV ONE (07:44)
[2021-04-14] MEDS ORDERED: LIDOCAINE 1% INJ 10MG/ML (20 ML MDV) SQ ONE ×2 (07:44→07:49)
[2021-04-14] MEDS ORDERED: VERAPAMIL SYRINGE (5 MG/10 ML) INTRAARTER ONE ×2 (07:46→07:50)
[2021-04-14] MEDS ORDERED: HEPARIN SODIUM 1,000 UN/ML (10ML VL) IV ONE (07:55)
[2021-04-14] MEDS ORDERED: NITROGLYCERIN 1000MCG/10ML SYRINGE INTRACORON ONE (08:05)
[2021-04-14] MEDS ORDERED: TICAGRELOR 90 MG TAB ONE (08:19)
[2021-04-14] MEDS ORDERED: TICAGRELOR 90 MG TAB PO ONE (08:20)
[2021-04-14] MEDS ORDERED: IOPAMIDOL-370 100ML BTL INJ ONE (08:21)
[2021-04-14] MEDS ORDERED: SODIUM CHLORIDE 0.9% 1,000 ML IV SCH (09:45)
--- NOTE | 2021-04-14 10:40 | PTCA ---
PERCUTANEOUSTRANS CORORONARY ANGIOGRAPHY DATE OF SERVICE: 04/14/2021 PROCEDURE PERFORMED: PTCA and stenting of mid circumflex coronary artery with a drug-eluting stent. PERFORMED BY: Dr. Bela Meyer. Moderate conscious sedation time was 35 minutes. CLINICAL INFORMATION: Mr. Juan Araujo is a 65-year-old gentleman who presented on March 21 with chest pain and troponin elevation and EKG changes and went on to have a non-ST elevation [place] with a total occlusion of the PLV branch of a dominant RCA that was stented and mid RCA was also stented. He has diffuse calcified disease in the LAD that starts in the proximal/mid segment and extends to beyond the mid segment. He also had a mid circumflex lesion of 80%, proximal circumflex lesion of 40%. He was advised staged intervention. Surgery was not thought to be a very good option given the diffuse nature of disease in the LAD. He was brought in for the procedure electively. PROCEDURE NOTE: Under local anesthesia and strict aseptic precautions, a 6-Azeri introducer was placed in the right radial artery. I used a micropuncture needle technique to gain access. Using a standard right Armando diagnostic catheter, I performed selective coronary angiography of the right coronary artery and noted that the RCA was widely patent. In the midportion, the PLV branch was widely patent with very good flow. I then turned my attention to the circumflex. A JL3.5 guide catheter was used to cannulate the left coronary artery. A run-through wire was used to cross the lesion. A 2.5 caliber 12 mm long NC Trek balloon was used to pre-dilate the mid circumflex. A 3.25 caliber 12 mm long Xience stent was deployed at 12 atmospheres. Patient had no significant symptoms or EKG changes. Excellent angiographic result was achieved. The ostial/proximal circumflex has about a 40% plaque unchanged. Excellent angiographic result was achieved. I gave him 5000 units of heparin, which is 70 units/kg. However, the patient's ACT initially was 382, a repeat one was 232. He was already on aspirin and Brilinta. The sheath was taken out and TR band applied as per protocol and he was sent to the room in a stable condition. Excellent angiographic result was achieved. Saturation the fingers of the right hand was more than 95%. I will do staged intervention of the LAD which is a very long and calcified lesion. He will probably require an orbital atherectomy along with stenting of the LAD which will be performed in the next couple of weeks. Details of the procedure and results were discussed and the plan was discussed with the patient as well as his family members including his . He will be discharged later on today if he remains stable. BHARAT / FRANCISCO: [id number] /
[2021-04-14] MEDS ORDERED: SODIUM CHLORIDE 0.9% 1,000 ML IV ONE (12:30)
[2021-04-14 15:19] VITALS: BP 106/71; PULSE 68
== END 2021-04-14 16:17 | disposition home or self-care (01) ==
LOC: CATHCVL 06:37
PROVIDERS: ATTEND Internal Medicine Interventional Cardiology
DX: I25.10 Atherosclerotic heart disease of native coronary artery without angina pectoris (principal); I25.84 Coronary atherosclerosis due to calcified coronary lesion; I25.82 Chronic total occlusion of coronary artery; I10 Essential (primary) hypertension; E78.00 Pure hypercholesterolemia, unspecified; I25.2 Old myocardial infarction; Z20.818 Contact with and (suspected) exposure to other bacterial communicable diseases; Z79.02 Long term (current) use of antithrombotics/antiplatelets; Z79.82 Long term (current) use of aspirin; Z79.899 Other long term (current) drug therapy
CPT/HCPCS: 87635; C9600; C1887; C1894; C1725; C1769 ×2; C1874; J2250; J2001; J1644; Q9967

== ENCOUNTER 2021-05-11 09:08 | Day surgery (SDC) | payer BC, MEDICARE ==
[2021-05-09 13:56] VITALS: BMI 24.1
[~2021-05-11 09:08] MED LIST changes: +ATORVASTATIN 80 MG TAB PO STA; -SODIUM CHLORIDE 0.9% 1,000 ML in EMPTY BAG 1 BAG IV ONE; +SODIUM CHLORIDE 0.9% 1,000 ML in EMPTY BAG 1 BAG IV SCH
[2021-05-11 09:49] VITALS: TEMP 98.4
[2021-05-11] MEDS ORDERED: IV FLUID CONTINUATION 1,000 ML IV ONE (09:54)
[2021-05-11] MEDS ORDERED: VERAPAMIL 2.5 MG/ML 2 ML AMP ONE (10:08)
[2021-05-11] MEDS ORDERED: LIDOCAINE 1% INJ 10MG/ML (20 ML MDV) ONE (10:08)
[2021-05-11 10:16] LABS: Basophils # (A) 0.1 k/uL (0-0.2); Basophils % (A) 1 %; Eosinophils # (A) 0.6 k/uL (0-0.7); Eosinophils % (A) 9 %; HCT 46.9 % (39.0-53.0); HGB 15.8 gm/dL (13.0-17.5); Lymphocytes # (A) 1.6 k/uL (1.0-4.8); Lymphocytes % (A) 23 %; MCH 28.9 pg (25.0-35.0); MCHC 33.7 g/dL (31.0-37.0); MCV 85.9 fL (80.0-100.0); Mean Platelet Volume 6.5; Monocytes # (A) 0.4 k/uL (0-1.0); Monocytes % (A) 6 %; Neutrophils % (A) 58 %; Platelet Count 235 k/uL (150-450); RBC 5.46 m/uL (4.30-5.90); RDW 13.1 % (11.5-15.5); WBC 6.8 k/uL (3.8-10.6)
[2021-05-11] MEDS ORDERED: HEPARIN SODIUM 1,000 UN/ML (10ML VL) ONE (10:27)
[2021-05-11 10:30] LABS: African American GFR (CKD) >90 (>60 ml/min/1.73 sqM); Anion Gap 9 mmol/L; Blood Urea Nitrogen 17 mg/dL (9-20); Calcium 9.7 mg/dL (8.4-10.2); Carbon Dioxide 23 mmol/L (22-30); Chloride 105 mmol/L (98-107); Glucose 99 mg/dL (74-99); Non-African American GFR(CKD) >90 (>60 ml/min/1.73 sqM); Potassium 4.2 mmol/L (3.5-5.1); Sodium 137 mmol/L (137-145)
[2021-05-11] MEDS ORDERED: MIDAZOLAM 2 MG/2 ML VIAL IV ONE ×2 (10:41→10:42)
[2021-05-11] MEDS ORDERED: LIDOCAINE 1% INJ 10MG/ML (20 ML MDV) SQ ONE (10:45)
[2021-05-11] MEDS ORDERED: VERAPAMIL SYRINGE (5 MG/10 ML) INTRAARTER ONE ×2 (10:46→10:47)
[2021-05-11] MEDS: HEPARIN SODIUM 1,000 UN/ML (10ML VL) IV ONE ×3 (10:49→12:08)
[2021-05-11] MEDS ORDERED: IOPAMIDOL-370 100ML BTL INJ ONE ×2 (11:20→12:00)
[2021-05-11] MEDS ORDERED: NITROGLYCERIN 1000MCG/10ML SYRINGE INTRACORON ONE (11:59)
[2021-05-11] MEDS ORDERED: TICAGRELOR 90 MG TAB ONE (12:09)
[2021-05-11] MEDS ORDERED: TICAGRELOR 90 MG TAB PO ONE (12:12)
[2021-05-11] MEDS ORDERED: SODIUM CHLORIDE 0.9% 1,000 ML IV SCH (13:00)
--- NOTE | 2021-05-11 13:00 | PTCA ---
PERCUTANEOUSTRANS CORORONARY ANGIOGRAPHY DATE OF SERVICE: 05/11/2021. PROCEDURE: 1. Orbital atherectomy of proximal and mid LAD. 2. Percutaneous transluminal coronary angioplasty and stenting of proximal and mid LAD with two drug-eluting stents. PERFORMED BY: Dr. Bela Meyer. Moderate conscious sedation time was 83 minutes. Patient was administered Versed. Oxygen saturation, hemodynamics and EKG were monitored closely. CLINICAL INFORMATION: Mr. Juan Araujo is a 66-year-old gentleman with a history of [id number] MO in February and stenting of a totally occluded PLV branch of a dominant RCA and mid RCA. On April 14 I performed staged intervention of mid circumflex. He had a long LAD disease in a heavily calcified segment and multiple lesions of anywhere from 70% to 90%. He was advised elective orbital atherectomy and PCI and brought in for the procedure. PROCEDURE NOTE: Under local anesthesia and strict aseptic precautions, a 6-Colombian introducer was placed in the right radial artery. Using a JL3.5 guide catheter, I performed selective coronary angiography of the left system and noted that the previously stented circumflex was widely patent with good flow. I then turned my attention to the LAD. A long run-through wire was used to cross the lesion. I used a Teleport catheter to exchange the wire and advanced a nitinol orbital atherectomy wire. I then performed orbital atherectomy using Dynaglide of the mid as well as proximal LAD before and after the diagonal branches. Subsequently I exchanged the nitinol wire for a run-through wire. I tried to advance a 2.25 balloon, and I had considerable difficulty to make the bend because of heavy calcification. I then used a GuideLiner. With the help of a GuideLiner I was able to dilate the lesion just after the diagonal branch as well as before the diagonal branch. I tried to deploy a 2.5 caliber 18 mm long Xience stent, but I could not advance it. I switched over to a 2.0 caliber 18 mm long Arnav stent, and I was able to deploy this right at the origin of the diagonal branch and running distally. This was deployed at 13 atmospheres. Excellent angiographic result was achieved. I then deployed a 3.0 caliber 12 mm Xience stent, and this was deployed with the help of a GuideLiner just proximal to the diagonal origin. This was deployed at 13 atmospheres. Excellent angiographic result was achieved. I then went back with a 2.5 NC Trek balloon and I post-dilated the [place] balloon, which was a 2.2, 18 balloon. I used a 2.5, 15 mm long NC Trek. With this, I post-dilated the entire Arnav stent with excellent result. Patient had mild precordial ST elevation but no significant EKG changes. Excellent angiographic result was achieved without complication. There was still quite a bit of disease in the distal LAD, but the flow overall increased remarkably. Results were discussed with the patient as well as his and daughter. I expect he will be discharged later on today if he remains stable, and I will see him in the office next Sunday. Advised not to do any strenuous activity. Patient received intravenous heparin 5000 units and additional 1000. ACT was kept between 250 and 300. He also received two Brilinta 90 mg tablets. He was sent to the room in a stable condition and results were discussed with the patient and family. I expect he will be discharged today. BHARAT / FRANCISCO: [id number] /
[2021-05-11 16:57] VITALS: BP 124/72; PULSE 73; RESP 16
== END 2021-05-11 16:57 | disposition home or self-care (01) ==
LOC: CATHCVL 09:08
PROVIDERS: ATTEND Internal Medicine Interventional Cardiology
DX: I25.10 Atherosclerotic heart disease of native coronary artery without angina pectoris (principal); I25.2 Old myocardial infarction; E78.5 Hyperlipidemia, unspecified; E78.00 Pure hypercholesterolemia, unspecified; Z20.822 Contact with and (suspected) exposure to COVID-19; Z95.5 Presence of coronary angioplasty implant and graft; Z79.02 Long term (current) use of antithrombotics/antiplatelets; Z79.899 Other long term (current) drug therapy
CPT/HCPCS: 80048; 85025; 87635; C9602; C1887 ×3; C1894; C1725 ×2; C1769 ×2; C1724; C1874 ×3; J2250; J2001; J1644; Q9967; 92924